=== PATIENT | male | born 1960 | race Caucasian/White ===

== ENCOUNTER 2016-07-04 10:36 | Inpatient (IN) | payer MEDICARE, OTHER ==
[2016-07-04 11:29] LABS: Basophils # (A) 0.1 k/uL (0-0.2); Basophils % (A) 1 %; CH 31.8; CHCM 35.1; Eosinophils % (A) 0 %; HCT 45.3 % (39.0-53.0); HDW 2.29; HGB 15.5 gm/dL (13.0-17.5); Luc # (Auto) 0.18; Luc % (Auto) 2; Lymphocytes # (A) 0.9 k/uL (1.0-4.8); Lymphocytes % (A) 9 %; MCH 31.1 pg (25.0-35.0); MCHC 34.3 g/dL (31.0-37.0); MCV 90.7 fL (80.0-100.0); Mean Platelet Volume 6.9; Monocytes # (A) 0.5 k/uL (0-1.0); Monocytes % (A) 5 %; Neutrophils # (A) 8.4 k/uL (1.3-7.7); Neutrophils % (A) 84 %; RDW 12.7 % (11.5-15.5); WBC (Perox) 10.02
[2016-07-04 11:30] LABS: ALT 38 U/L (21-72); AST 31 U/L (17-59); Alkaline Phosphatase 89 U/L (38-126); Anion Gap 17 mmol/L; Blood Urea Nitrogen 14 mg/dL (9-20); Calcium 9.6 mg/dL (8.4-10.2); Carbon Dioxide 21 mmol/L (22-30); Chloride 99 mmol/L (98-107); Glucose 103 mg/dL (74-99); Non-African American GFR(MDRD) >60 (>60 ml/min/1.73 sqM); Potassium 4.1 mmol/L (3.5-5.1); Sodium 137 mmol/L (137-145); Total Bilirubin 0.6 mg/dL (0.2-1.3); Total Protein 7.9 g/dL (6.3-8.2)
--- NOTE | 2016-07-04 11:30 | XR ---
EXAMINATION TYPE: XR chest 2V DATE OF EXAM ORDERED: 07/04/2016 11:24 AM HISTORY: Pain. REFERENCE: None. FINDINGS: The lungs are clear. Pleural spaces are clear. Heart size is normal. IMPRESSION: NORMAL CHEST.
[2016-07-04 11:43] LABS: INR 1.1 (<1.1); Partial Thromboplastin Time 25.3 sec (22.0-30.0)
[2016-07-04] MEDS ORDERED: ACETAMINOPHEN TAB 500 MG TAB PO STA (11:58)
[2016-07-04] MEDS ORDERED: SODIUM CHLORIDE 0.9% 1,000 ML IV ONE (12:19)
[2016-07-04 12:23] LABS: ABG HCO3 15 mmol/L (21-25); ABG PCO2 17 mmHg (35-45); ABG PH 7.56 (7.35-7.45); ABG PO2 121 mmHg (83-108); ABG TCO2 16 mmol/L (19-24)
[2016-07-04] MEDS ORDERED: RX INFO: IV CONTRAST WAS GIVEN 1 EACH MISC MISCELLANE PRN (12:23)
[2016-07-04 12:24] LABS: ABG Base Excess -6.6 mmol/L
[2016-07-04] MEDS ORDERED: LORazepam 2 MG/ML SYRINGE IV STA (12:41)
--- NOTE | 2016-07-04 12:41 | ED ---
SOB HPI - General Chief Complaint: Shortness of Breath Stated Complaint: SOB Time Seen by Provider: 07/04/16 10:41 Source: patient Mode of arrival: EMS Limitations: physical limitation - History of Present Illness Initial Comments: Severe pain of the right arm, he does not want me to touch his right arm has a hard time breathing and it does hurt to take a deep breath shortness of breath been there since last night he denies any history of COPD denies any history of for CHF he said he had a cardiac event 20 years ago he denies any headaches no neck stiffness denies any abdominal pain no frequency urgency dysuria, degree of system is negative otherwise - Related Data Home Medications Medication Instructions Recorded Confirmed Amoxicillin 1,000 mg PO BID 07/04/16 07/04/16 Super Beta Prostate 2 cap PO DAILY 07/04/16 07/04/16 traMADol HCL [Ultram] 50 mg PO Q6HR PRN 07/04/16 07/04/16 Allergies Allergy/AdvReac Type Severity Reaction Status Date / Time aspirin Allergy Anaphylaxis Verified 07/04/16 11:34 bee pollen Allergy Anaphylaxis Verified 07/04/16 11:34 Penicillins Allergy Anaphylaxis Verified 07/04/16 11:34 Review of Systems ROS Statement: Those systems with pertinent positive or pertinent negative responses have been documented in the HPI. ROS Other: All systems not noted in ROS Statement are negative. Past Medical History Additional Past Medical History / Comment(s): COMPLEX REGIONAL PAIN SYNDROME- CRPS, RIGHT KNEE PROBLEMS History of Any Multi-Drug Resistant Organisms: None Reported Past Surgical History: Orthopedic Surgery Additional Past Surgical History / Comment(s): RIGHT KNEE, RIGHT HAND, RIGHT ARM-TENDON Past Psychological History: No Psychological Hx Reported Smoking Status: Current every day smoker Past Alcohol Use History: None Reported Past Drug Use History: None Reported General Exam Limitations: physical limitation Course Vital Signs 07/04/16 07/04/16 07/04/16 10:38 10:50 11:05 Temperature 100.8 F H Pulse Rate 122 H Pulse Rate [ 106 H Pulse Oximetery ] Respiratory 22 Rate Blood Pressure 146/76 Blood Pressure 143/69 [Left Arm] O2 Sat by Pulse 100 100 Oximetry 07/04/16 07/04/16 07/04/16 11:35 11:50 12:15 Temperature 101.2 F H Pulse Rate Pulse Rate [ 102 H 104 H 103 H Pulse Oximetery ] Respiratory 24 Rate Blood Pressure Blood Pressure 122/68 134/75 136/69 [Left Arm] O2 Sat by Pulse 100 100 99 Oximetry 07/04/16 07/04/16 07/04/16 12:38 12:45 13:17 Temperature 101.6 F H Pulse Rate 124 H 105 H Pulse Rate [ 97 Pulse Oximetery ] Respiratory 32 H 24 20 Rate Blood Pressure 144/86 107/65 Blood Pressure 135/89 [Left Arm] O2 Sat by Pulse 10 L 99 100 Oximetry EKG is sinus tachycardia ventricular rate is 170 NH interval is 142 QRS duration is 90 QT/QTC 320/446, DVT of this EKG does not show any ST elevation - Reevaluation(s) Reevaluation #2: 07/04/16 14:00 Considering all the diagnoses and recommend to the patient that we need to put him in the hospital he agreed with that at 1400 not get hold of also give on the right the admitting orders Medical Decision Making - Lab Data Result diagrams: 07/04/16 11:00 07/04/16 11:00 Lab Results 07/04/16 07/04/16 07/04/16 Range/Units 11:00 11:00 11:00 WBC 10.0 (3.8-10.6) k/uL RBC 5.00 (4.30-5.90) m/uL Hgb 15.5 (13.0-17.5) gm/dL Hct 45.3 (39.0-53.0) % MCV 90.7 (80.0-100.0) fL MCH 31.1 (25.0-35.0) pg MCHC 34.3 (31.0-37.0) g/dL RDW 12.7 (11.5-15.5) % Plt Count 230 (150-450) k/uL Neutrophils % 84 % Lymphocytes % 9 % Monocytes % 5 % Eosinophils % 0 % Basophils % 1 % Neutrophils # 8.4 H (1.3-7.7) k/uL Lymphocytes # 0.9 L (1.0-4.8) k/uL Monocytes # 0.5 (0-1.0) k/uL Eosinophils # 0.0 (0-0.7) k/uL Basophils # 0.1 (0-0.2) k/uL PT (9.0-12.0) sec INR (<1.1) APTT (22.0-30.0) sec D-Dimer (<0.60) mg/L FEU Sample Site ABG pH (7.35-7.45) ABG pCO2 (35-45) mmHg ABG pO2 (83-108) mmHg ABG HCO3 (21-25) mmol/L ABG Total CO2 (19-24) mmol/L ABG O2 Saturation (94-97) % ABG Base Excess mmol/L FiO2 % Sodium 137 (137-145) mmol/L Potassium 4.1 (3.5-5.1) mmol/L Chloride 99 (98-107) mmol/L Carbon Dioxide 21 L (22-30) mmol/L Anion Gap 17 mmol/L BUN 14 (9-20) mg/dL Creatinine 1.01 (0.66-1.25) mg/dL Est GFR (MDRD) Af Amer >60 (>60 ml/min/1.73 sqM) Est GFR (MDRD) Non-Af >60 (>60 ml/min/1.73 sqM) Glucose 103 H (74-99) mg/dL Plasma Lactic Acid Gordy 2.8 H* (0.7-2.0) mmol/L Calcium 9.6 (8.4-10.2) mg/dL Total Bilirubin 0.6 (0.2-1.3) mg/dL AST 31 (17-59) U/L ALT 38 (21-72) U/L Alkaline Phosphatase 89 (38-126) U/L Troponin I (0.000-0.034) ng/mL Total Protein 7.9 (6.3-8.2) g/dL Albumin 4.6 (3.5-5.0) g/dL Influenza Type B (PCR) (Not Detectd) 07/04/16 07/04/16 07/04/16 Range/Units 11:00 11:00 11:00 WBC (3.8-10.6) k/uL RBC (4.30-5.90) m/uL Hgb (13.0-17.5) gm/dL Hct (39.0-53.0) % MCV (80.0-100.0) fL MCH (25.0-35.0) pg MCHC (31.0-37.0) g/dL RDW (11.5-15.5) % Plt Count (150-450) k/uL Neutrophils % % Lymphocytes % % Monocytes % % Eosinophils % % Basophils % % Neutrophils # (1.3-7.7) k/uL Lymphocytes # (1.0-4.8) k/uL Monocytes # (0-1.0) k/uL Eosinophils # (0-0.7) k/uL Basophils # (0-0.2) k/uL PT 11.0 (9.0-12.0) sec INR 1.1 (<1.1) APTT 25.3 (22.0-30.0) sec D-Dimer 0.71 H (<0.60) mg/L FEU Sample Site ABG pH (7.35-7.45) ABG pCO2 (35-45) mmHg ABG pO2 (83-108) mmHg ABG HCO3 (21-25) mmol/L ABG Total CO2 (19-24) mmol/L ABG O2 Saturation (94-97) % ABG Base Excess mmol/L FiO2 % Sodium (137-145) mmol/L Potassium (3.5-5.1) mmol/L Chloride (98-107) mmol/L Carbon Dioxide (22-30) mmol/L Anion Gap mmol/L BUN (9-20) mg/dL Creatinine (0.66-1.25) mg/dL Est GFR (MDRD) Af Amer (>60 ml/min/1.73 sqM) Est GFR (MDRD) Non-Af (>60 ml/min/1.73 sqM) Glucose (74-99) mg/dL Plasma Lactic Acid Gordy (0.7-2.0) mmol/L Calcium (8.4-10.2) mg/dL Total Bilirubin (0.2-1.3) mg/dL AST (17-59) U/L ALT (21-72) U/L Alkaline Phosphatase (38-126) U/L Troponin I <0.012 (0.000-0.034) ng/mL Total Protein (6.3-8.2) g/dL Albumin (3.5-5.0) g/dL Influenza Type B (PCR) (Not Detectd) 03/27/17 03/27/17 Range/Units 12:04 13:15 WBC (3.8-10.6) k/uL RBC (4.30-5.90) m/uL Hgb (13.0-17.5) gm/dL Hct (39.0-53.0) % MCV (80.0-100.0) fL MCH (25.0-35.0) pg MCHC (31.0-37.0) g/dL RDW (11.5-15.5) % Plt Count (150-450) k/uL Neutrophils % % Lymphocytes % % Monocytes % % Eosinophils % % Basophils % % Neutrophils # (1.3-7.7) k/uL Lymphocytes # (1.0-4.8) k/uL Monocytes # (0-1.0) k/uL Eosinophils # (0-0.7) k/uL Basophils # (0-0.2) k/uL PT (9.0-12.0) sec INR (<1.1) APTT (22.0-30.0) sec D-Dimer (<0.60) mg/L FEU Sample Site left radial ABG pH 7.56 H (7.35-7.45) ABG pCO2 17 L* (35-45) mmHg ABG pO2 121 H (83-108) mmHg ABG HCO3 15 L (21-25) mmol/L ABG Total CO2 16 L (19-24) mmol/L ABG O2 Saturation 99.0 H (94-97) % ABG Base Excess -6.6 mmol/L FiO2 28 % Sodium (137-145) mmol/L Potassium (3.5-5.1) mmol/L Chloride (98-107) mmol/L Carbon Dioxide (22-30) mmol/L Anion Gap mmol/L BUN (9-20) mg/dL Creatinine (0.66-1.25) mg/dL Est GFR (MDRD) Af Amer (>60 ml/min/1.73 sqM) Est GFR (MDRD) Non-Af (>60 ml/min/1.73 sqM) Glucose (74-99) mg/dL Plasma Lactic Acid Gordy (0.7-2.0) mmol/L Calcium (8.4-10.2) mg/dL Total Bilirubin (0.2-1.3) mg/dL AST (17-59) U/L ALT (21-72) U/L Alkaline Phosphatase (38-126) U/L Troponin I (0.000-0.034) ng/mL Total Protein (6.3-8.2) g/dL Albumin (3.5-5.0) g/dL Influenza Type B (PCR) Detected H (Not Detectd) Critical Care Time Total Critical Care Time: 60 Critical Care Time: Patient was quite tachycardic and tachypnea on arrival, his ABG showed metabolic acidosis 10 years severe dyspnea that prompted us a CT angiogram chest to rule out PE which was negative then we did the echocardiogram to rule out any acute Or not on any fluid around the pericardium compromising the cardiac functions and central supply tech personally confirmed. Told me that there was not enough fluid to cause any problem considering his tachycardia and tachycardia and tachypnea patient was given some Ativan and now fluid bolus was done to help him with the metabolic acidosis and Levaquin for bronchitis CN now Tamiflu for flu B. Considering tachycardia and tachypnea metabolic acidosis with flu B being positive and patient being febrile she'll be admitted to Dr. John service Disposition Clinical Impression: Tachycardia, Dyspnea, Metabolic acidosis, Elevated d-dimer, Influenza, Bronchitis Disposition: ADMITTED IP TO THIS HOSP Condition: Good Referrals: Mitchell Adair MD [Primary Care Provider] - 1-2 days
[2016-07-04] MEDS ORDERED: IBUPROFEN 600 MG TAB PO STA (12:42)
[2016-07-04] MEDS ORDERED: KETAMINE 10 MG/ML 20 ML VIAL IV ONE (12:47)
--- NOTE | 2016-07-04 13:23 | CT ---
EXAMINATION TYPE: CT angio chest DATE OF EXAM: 07/04/2016 1:19 PM COMPARISON: NONE HISTORY: SOB. Rule out PE CT DLP: 371.30 mGycm CONTRAST: CT chest with contrast and 3D reconstruction with MIP imaging is performed with IV Contrast, patient injected with 100 ml mL of Omnipaque 350. Contrast-enhanced CT of the chest was performed through the course of the pulmonary arteries with moises g and mediastinal window settings submitted. 3D reconstruction with MIP imaging was also performed. PULMONARY ARTERIES: The pulmonary arteries and their major tributaries are patent. I do not see lonnie dence for sizable filling defect to suggest pulmonary embolic process. LUNGS: The lungs are clear and free of infiltrate. Mild dependent basilar atelectasis. There is bronc hial wall thickening which may reflect bronchitis. No pulmonary nodule or mass is detected. No pleur al effusion. MEDIASTINUM: Thoracic aorta is of normal caliber . The heart is not enlarged. No evidence for media stinal mass. No mediastinal lymph nodes greater than 1cm. HILAR STRUCTURES: No evidence for mass. No hilar lymph nodes greater than 1 cm. UPPER ABDOMEN: No significant abnormality is seen. IMPRESSION: 1. No evidence for Pulmonary embolism at this time. 2. Bronchial wall thickening especially within the lower lobes which may reflect bronchitis and early changes of bronchiectasis.
[2016-07-04] MEDS ORDERED: LEVOFLOXACIN 500MG-D5W PMX 500 MG in DEXTROSE/WATER 1 100ML.BAG IVPB STA (13:31)
[2016-07-04] MEDS ORDERED: OSELTAMIVIR 75 MG CAP PO STA (13:55)
[2016-07-04] MEDS ORDERED: ONDANSETRON 4 MG/2 ML VIAL IVP PRN (14:01)
[2016-07-04] MEDS ORDERED: IBUPROFEN 400 MG TAB PO PRN (14:01)
[2016-07-04] MEDS ORDERED: NALOXONE 0.4 MG/ML 1 ML VIAL IV PRN (14:01)
[2016-07-04] MEDS ORDERED: traMADol 50 MG TAB PO PRN (14:06)
[2016-07-04] MEDS ORDERED: LEVOFLOXACIN 500 MG TAB PO SCH (14:15)
[2016-07-04 15:01] LABS: Appearance,Urine Clear (Clear); Bilirubin,Urine Negative (Negative); Glucose,Urine (UA) Negative (Negative); Ketones,Urine Negative (Negative); Leukocyte Esterase,Urine Negative (Negative); Nitrite,Urine Negative (Negative); Particle Count 592; Protein,Urine Negative (Negative); RBC,Urine 2 /hpf (0-5); UA Billing (MACRO vs. MICRO) MICRO; Urobilinogen,Urine <2.0 mg/dL (<2.0); WBC,Urine 1 /hpf (0-5)
[2016-07-04 15:41] LABS: Specific Gravity,Urine 1.049 (1.001-1.035)
[2016-07-04] MEDS: SODIUM CHLORIDE 0.9% 1,000 ML IV SCH (16:49)
[2016-07-04] MEDS: LORazepam 2 MG/ML SYRINGE IV PRN (20:27)
[2016-07-04] MEDS: OSELTAMIVIR 75 MG CAP PO SCH (20:29)
[2016-07-05] MEDS: LORazepam 2 MG/ML SYRINGE IV PRN ×2 (05:45→11:53)
[2016-07-05] MEDS: SODIUM CHLORIDE 0.9% 1,000 ML IV SCH ×2 (05:57→15:56)
[2016-07-05] MEDS: OSELTAMIVIR 75 MG CAP PO SCH ×2 (08:38→22:19)
[2016-07-05] MEDS ORDERED: SUPER BETA PROSTATE PO SCH (09:00)
[2016-07-05 10:12] VITALS: BMI 28.5
--- NOTE | 2016-07-05 12:10 | P.HPIM ---
History of Present Illness H&P Date: 07/05/16 Chief Complaint: Shortness of breath This is a 56-year-old gentleman with past medical history significant for chronic arthritis pain who presented to the emergency room with worsening shortness of breath and cough. Patient said that his symptoms start couple of days ago that his dyspnea is being getting worse that he was barely able to walk around without feeling short of breath. He was also coughing and said that his cough was mostly nonproductive but occasionally productive of yellowish sputum. He was having fevers and chills at home. He presented to the emergency room and was found to be hyperventilating and tachypneic. CT angiogram showed no evidence of PE or lungs infiltrate. Patient had multiple high-grade fevers and was found to be positive for influenza PE. He was admitted to the hospital and started on Tamiflu. He is feeling relatively better today. He is complaining of severe anxiety as he is on droplet precaution and is not allowed to walk up and down the [place] which makes her very anxious. Review of Systems Review of system: 14 points review of systems were obtained and were negative except to what were mentioned in the HPI. Past Medical History Past Medical History: Myocardial Infarction ([place]) Additional Past Medical History / Comment(s): COMPLEX REGIONAL PAIN SYNDROME- CRPS, RIGHT KNEE PROBLEMS, "i had a heart attackk 20 years ago" Last Myocardial Infarction Date:: unk History of Any Multi-Drug Resistant Organisms: None Reported Past Surgical History: Orthopedic Surgery Additional Past Surgical History / Comment(s): total 23 RIGHT KNEE sx ( brigements, meniscus repairs), RIGHT HAND, RIGHT ARM-TENDON repair, sinus surgury. Past Anesthesia/Blood Transfusion Reactions: No Reported Reaction Past Psychological History: No Psychological Hx Reported Smoking Status: Current every day smoker Past Alcohol Use History: None Reported Additional Past Alcohol Use History / Comment(s): started smoking at age 12, smokes 1/2 ppd. Past Drug Use History: None Reported - Past Family History Mother Family Medical History: Hypertension Father Family Medical History: Cancer Additional Family Medical History / Comment(s): colon cancer Medications and Allergies Home Medications Medication Instructions Recorded Confirmed Type Amoxicillin 1,000 mg PO BID 07/04/16 07/04/16 History Super Beta Prostate 2 cap PO DAILY 07/04/16 07/04/16 History traMADol HCL [Ultram] 50 mg PO Q6HR PRN 07/04/16 07/04/16 History Allergies Allergy/AdvReac Type Severity Reaction Status Date / Time aspirin Allergy Anaphylaxis Verified 07/04/16 11:34 bee pollen Allergy Anaphylaxis Verified 07/04/16 11:34 Penicillins Allergy Anaphylaxis Verified 07/04/16 11:34 Physical Exam Vitals: Vital Signs Temp Pulse Pulse Resp BP BP Pulse Ox 07/05/16 08:00 97.5 F L 97 20 118/64 96 07/05/16 04:00 100.5 F H 113 H 18 145/69 93 L 07/05/16 00:00 100.1 F H 109 H 18 124/57 96 07/04/16 20:00 98.4 F 100 18 134/73 100 07/04/16 17:30 97.3 F L 84 18 110/65 100 07/04/16 16:49 98.3 F 84 18 103/68 99 07/04/16 14:44 100 18 115/69 100 07/04/16 14:10 98 18 104/65 96 Intake and Output 07/04/16 07/05/16 07/05/16 22:59 06:59 14:59 Intake Total 236 540 50 Balance 236 540 50 Intake: Oral 236 540 50 Other: # Voids 1 Weight 98.3 kg 98.3 kg Patient Weight 07/06/16 06:59 Weight 98.3 kg General: The patient is awake and alert, in no distress, and does not appear acutely ill. Eye: extra-ocular movements are intact; there is normal conjunctiva bilaterally. . Neck: The neck is supple, there is no tenderness or JVD. Cardiovascular: Normal S1-S2, no S3-S4, no murmurs. Respiratory: Lungs clear to auscultation bilaterally with no wheezes rhonchi or rales. Gastrointestinal: Abdomen is soft, nontender, nondistended, with no organomegaly. . Musculoskeletal: Normal ROM, no tenderness, There is no pedal edema. Neurological: There are no obvious motor or sensory deficits. Speech is normal. Skin: Skin is warm and dry and no rashes or lesions are noted. Results CBC & Chem 7: 07/04/16 11:00 07/04/16 11:00 Labs: Abnormal Lab Results - Last 24 Hours (Table) 07/04/16 Range/Units 14:40 Ur Specific [place] 1.049 H (1.001-1.035) Urine Blood Trace H (Negative) Microbiology - Last 24 Hours (Table) 07/04/16 14:40 Urine Culture - Preliminary Urine,Voided Thrombosis Risk Factor Assmnt - Choose All That Apply Any of the Below Risk Factors Present?: Yes Each Factor Represents 1 point: Age 41-60 years, Obesity (BMI >25) Other Risk Factors: No Other congenital or acquired thrombophilia - If yes, enter type in comment: No Thrombosis Risk Factor Assessment Total Risk Factor Score: 2 Thrombosis Risk Factor Assessment Level: Low Risk Assessment and Plan Plan: 1. Acute influenza B upper respiratory tract infection 2. Suspected superimposed acute bacterial bronchitis 3. Acute respiratory alkalosis secondary to tachypnea on presentation 4. Generalized anxiety disorder 5. Sepsis on presentation secondary to #1 and 2 Today, I reviewed his medication list and lab work results. Lactate is back to normal with IV fluid hydration. Continue Tamiflu and Levaquin for 5 days course. Change IV fluid to normal saline 75 mL per hour for the next 24 hours. Patient appeared very restless and anxious about being in the room and told me that he is claustrophobic for which I would start him on Valium low dose 4 times a day. He is anxious to go home but I told him is still too early. I explained to him that he would be able to go home within 24 hours past without having a fever. Awaiting blood cultures to finalize. Pulmonology consulted, appreciate recommendations.
--- NOTE | 2016-07-05 12:26 | ECHOF ---
Referral Reason:Rule out pericardial effusion MEASUREMENTS -------- HEIGHT: 185.4 cm WEIGHT: 93.0 kg BP: 135/89 RVIDd: 2.7 cm (< 3.3) IVSd: 1.1 cm (0.6 - 1.1) LVIDd: 4.3 cm (3.9 - 5.3) LVPWd: 1.0 cm (0.6 - 1.1) IVSs: 1.4 cm LVIDs: 2.9 cm LVPWs: 1.6 cm LA Diam: 3.7 cm (2.7 - 3.8) LAESV Index (A-L): 18.64 ml/m Ao Diam: 3.0 cm (2.0 - 3.7) AV Cusp: 2.1 cm (1.5 - 2.6) MV EXCURSION: 14.642 mm (> 18.000) MV EF SLOPE: 89 mm/s (70 - 150) EPSS: 0.4 cm MV E Elian: 0.82 m/s MV DecT: 169 ms MV A Elian: 1.17 m/s MV E/A Ratio: 0.70 RAP: 5.00 mmHg RVSP: 28.98 mmHg FINDINGS -------- Sinus rhythm. This was a technically good study. The left ventricular size is normal. There is borderline concentric left ventricular hypertrophy. Overall left ventricular systolic function is normal with, an EF between 60 - 65 %. The right ventricle is normal in size. Normal LA size by volume 22+/-6 ml/m2. The right atrium is normal in size. The aortic valve is trileaflet and appears structurally normal. Normal appearing mitral valve. No mitral regurgitation. The tricuspid valve appears structurally normal. No regurgitation noted The pulmonic valve was not well visualized. There is no pulmonic regurgitation present. The aortic root size is normal. Normal inferior vena cava with normal inspiratory collapse consistent with estimated right atrial pressure of 5 mmHg. CONCLUSIONS -------- 1. Sinus rhythm. 2. There is no pulmonic regurgitation present. 3. The aortic root size is normal. 4. Normal inferior vena cava with normal inspiratory collapse consistent with estimated right atrial pressure of 5 mmHg. 5. This was a technically good study. 6. There is borderline concentric left ventricular hypertrophy. 7. Overall left ventricular systolic function is normal with, an EF between 60 - 65 %. 8. Normal LA size by volume 22+/-6 ml/m2. 9. The aortic valve is trileaflet and appears structurally normal. 10. Normal appearing mitral valve. 11. The tricuspid valve appears structurally normal. 12. The pulmonic valve was not well visualized. IT APPLICATIONS ANALYST: Angelina Simpson RDCS
--- NOTE | 2016-07-05 14:05 | P.CNPUL ---
History of Present Illness Consult date: 07/05/16 Reason for consult: dyspnea Chief complaint: shortness of breath History of present illness: This is a 56-year-old male comes into the hospital with complaints of difficulty breathing. He apparently is having a hard time taking a deep breath. Anyway the patient tested positive for influenza and was admitted. The patient states that he is feeling a bit better. He was very sleepy wanted to the imu into his room and he was difficult to arouse initially. Not a particularly good historian. I asked him why he was admitted. He was not sure. I'm not sure either. The patient had a blood gas which showed appear respiratory alkalosis. His his influenza studies were normal. He had a CT angiogram the chest which was negative for PE. He also had a chest x-ray which was normal. His home medications only included amoxicillin super beta prostate and tramadol. Review of Systems A 12 point review of system is positive for shortness of breath and pleuritic- type chest pleuritic type chest pain. Past Medical History Past Medical History: Myocardial Infarction ([place]) Additional Past Medical History / Comment(s): COMPLEX REGIONAL PAIN SYNDROME- CRPS, RIGHT KNEE PROBLEMS, "i had a heart attackk 20 years ago" Last Myocardial Infarction Date:: unk History of Any Multi-Drug Resistant Organisms: None Reported Past Surgical History: Orthopedic Surgery Additional Past Surgical History / Comment(s): total 23 RIGHT KNEE sx ( brigements, meniscus repairs), RIGHT HAND, RIGHT ARM-TENDON repair, sinus surgury. Past Anesthesia/Blood Transfusion Reactions: No Reported Reaction Past Psychological History: No Psychological Hx Reported Smoking Status: Current every day smoker Past Alcohol Use History: None Reported Additional Past Alcohol Use History / Comment(s): started smoking at age 12, smokes 1/2 ppd. Past Drug Use History: None Reported - Past Family History Mother Family Medical History: Hypertension Father Family Medical History: Cancer Additional Family Medical History / Comment(s): colon cancer Medications and Allergies Home Medications Medication Instructions Recorded Confirmed Type Amoxicillin 1,000 mg PO BID 07/04/16 07/04/16 History Super Beta Prostate 2 cap PO DAILY 07/04/16 07/04/16 History traMADol HCL [Ultram] 50 mg PO Q6HR PRN 07/04/16 07/04/16 History Allergies Allergy/AdvReac Type Severity Reaction Status Date / Time aspirin Allergy Anaphylaxis Verified 07/04/16 11:34 bee pollen Allergy Anaphylaxis Verified 07/04/16 11:34 Penicillins Allergy Anaphylaxis Verified 07/04/16 11:34 Physical Exam Osteopathic Statement: *. No significant issues noted on an osteopathic structural exam other than those noted in the History and Physical/Consult. Vitals: Vital Signs Temp Pulse Pulse Resp BP BP Pulse Ox 07/05/16 12:00 98.4 F 92 20 132/71 98 07/05/16 08:00 97.5 F L 97 20 118/64 96 07/05/16 04:00 100.5 F H 113 H 18 145/69 93 L 07/05/16 00:00 100.1 F H 109 H 18 124/57 96 07/04/16 20:00 98.4 F 100 18 134/73 100 07/04/16 17:30 97.3 F L 84 18 110/65 100 07/04/16 16:49 98.3 F 84 18 103/68 99 07/04/16 14:44 100 18 115/69 100 07/04/16 14:10 98 18 104/65 96 Intake and Output 07/04/16 07/05/16 07/05/16 22:59 06:59 14:59 Intake Total 236 540 150 Balance 236 540 150 Intake: Oral 236 540 150 Other: # Voids 1 1 Weight 98.3 kg 98.3 kg Patient Weight 07/06/16 06:59 Weight 98.3 kg no acute distress, oriented 3. HEENT examination is unremarkable. Mucous membranes are moist. No oral lesions. Neck supple. Full range of motion. No adenopathy. No thyromegaly. Neck veins are flat. Cardiovascular examination reveals regular rhythm rate. S1-S2 normal. No S3- S4 murmur. Lungs are clear breath sounds are equal. No wheezes rhonchi or crackles. Abdomen soft. Extremities are intact Results - Laboratory Findings CBC and BMP: 07/04/16 11:00 07/04/16 11:00 ABG ABG pH 7.56 (7.35-7.45) H 07/04/16 12:04 ABG pCO2 17 mmHg (35-45) L* 07/04/16 12:04 ABG pO2 121 mmHg (83-108) H 07/04/16 12:04 ABG O2 Saturation 99.0 % (94-97) H 07/04/16 12:04 PT/INR, D-dimer PT 11.0 sec (9.0-12.0) 07/04/16 11:00 INR 1.1 (<1.1) 07/04/16 11:00 D-Dimer 0.71 mg/L FEU (<0.60) H 07/04/16 11:00 Abnormal lab findings: Abnormal Labs 07/04/16 14:40 Ur Specific [place] 1.049 H Urine Blood Trace H - Diagnostic Findings Chest x-ray: image reviewed CT scan - chest: image reviewed (chest x-ray labs and medications are reviewed.) Assessment and Plan (1) Influenza Status: Acute Plan: Plan this patient should be discharged home on Tamiflu. In my opinion, there is absolutely no reason for this patient to be in the hospital and had being in the hospital with influenza poses arrested healthcare workers and other patients. His absolute no reason that this patient needs to be in the hospital any further. Time with Patient: Greater than 30
--- NOTE | 2016-07-05 15:07 | CDI ---
In responding to this query, please exercise your independent professional judgment. The [facility] Coding Staff and Clinical Documentation Specialists appreciate your assistance in clarifying documentation, maintaining compliance with coding guidelines, accurately documenting patients condition and capturing severity of illness. The fact that a question is asked does not imply that any particular answer is desired or expected. Communication forms are a method of clarifying documentation and are not made part of the Legal Health Record. Thank you in advance for your clarification. Last Revision, June 2015 Fanta Sandoval [address] [place] [address] Documentation Clarification Form Date: 07/05/2016 2:55:00 PM From: Yasmin Graff Admit Date: 07/04/2016 2:01:00 PM Patient Name: Alvaro Lozano Visit Number: [id number] Dr. Mitchell Adair History/Risk Factors: COPD Influenza B Bronchitis Smoker Clinical Indicators: Vital signs/Pulse oximetry: RR 24, sats 99% > RR 32, sats ? Lung/Breathing assessment: short of breath, labored ABG/CBG: pH - 7.56 p CO2 - 17 pHCO3 - 15 'Acute respiratory alkalosis' documented in H&P Treatment: O2: non-rebreather, nasal cannula IV Levaquin IV Ativan IV fluids with bolus In your professional opinion, can you please clarify if these findings signify one of the following conditions? Acuity: o Acute o Chronic o Acute on Chronic Respiratory Status: o Respiratory failure with hypercapnia o Respiratory failure with hypoxia o Other Diagnosis, please specify o Unable to determine Please document in your progress notes and discharge summary in order to capture severity of illness and risk of mortality. Include clinical findings that support your diagnosis. FYI: Press F11 to launch patient chart. The diagnoses above does not apply for this patient Place X here if this finding has no clinical significance, is not applicable or if you are not able to provide any additional documentation. ANNY
[2016-07-05] MEDS: traMADol 50 MG TAB PO SCH ×2 (15:52→22:16)
[2016-07-05] MEDS: LEVOFLOXACIN 500 MG TAB PO SCH (15:52)
[2016-07-05] MEDS: DIAZEPAM 2 MG TAB PO SCH ×3 (15:54→22:17)
[2016-07-05] MEDS: ACETAMINOPHEN TAB 325 MG TAB PO PRN ×2 (18:31→23:51)
[2016-07-05] MEDS: HEPARIN SODIUM,PORCINE 5,000 UNIT/ML 1 ML VIAL SQ SCH (22:18)
[2016-07-06 06:27] LABS: Basophils % (A) 1 %; CH 31.7; CHCM 34.5; Eosinophils % (A) 0 %; HDW 2.39; HGB 15.2 gm/dL (13.0-17.5); Luc # (Auto) 0.19; Luc % (Auto) 3; Lymphocytes # (A) 1.2 k/uL (1.0-4.8); Lymphocytes % (A) 19 %; MCHC 33.6 g/dL (31.0-37.0); MCV 92.2 fL (80.0-100.0); Mean Platelet Volume 6.9; Monocytes # (A) 0.4 k/uL (0-1.0); Monocytes % (A) 7 %; Neutrophils # (A) 4.5 k/uL (1.3-7.7); Neutrophils % (A) 71 %; RBC 4.89 m/uL (4.30-5.90); RDW 12.7 % (11.5-15.5); WBC 6.3 k/uL (3.8-10.6); WBC (Perox) 6.38
[2016-07-06] MEDS: ACETAMINOPHEN TAB 325 MG TAB PO PRN (06:27)
[2016-07-06 07:56] LABS: Anion Gap 12 mmol/L; Blood Urea Nitrogen 13 mg/dL (9-20); Calcium 8.9 mg/dL (8.4-10.2); Carbon Dioxide 24 mmol/L (22-30); Chloride 104 mmol/L (98-107); Glucose 96 mg/dL (74-99); Non-African American GFR(MDRD) >60 (>60 ml/min/1.73 sqM); Potassium 4.5 mmol/L (3.5-5.1); Sodium 140 mmol/L (137-145)
[2016-07-06] MEDS: OSELTAMIVIR 75 MG CAP PO SCH ×2 (08:11→21:11)
[2016-07-06] MEDS: DIAZEPAM 2 MG TAB PO SCH ×2 (08:11→12:02)
[2016-07-06] MEDS: HEPARIN SODIUM,PORCINE 5,000 UNIT/ML 1 ML VIAL SQ SCH ×2 (08:13→21:11)
[2016-07-06] MEDS: traMADol 50 MG TAB PO SCH ×3 (08:13→21:12)
[2016-07-06] MEDS: LEVOFLOXACIN 500 MG TAB PO SCH (12:01)
--- NOTE | 2016-07-06 15:47 | P.PN ---
Subjective Principal diagnosis: Sepsis Patient is a 56-year-old male presenting with cough and shortness of breath Patient had evidence of influenza and acute bronchitis Currently he is being treated with Tamiflu and Levaquin he is improving gradually He had evidence of sepsis on presentation was elevated lactic acid he received IV fluid boluses and has improved Objective - Vital Signs Vital signs: Vital Signs Temp 98.6 F 07/06/16 08:00 Pulse 73 07/06/16 12:00 Resp 18 07/06/16 12:00 BP 110/63 07/06/16 12:00 Pulse Ox 98 07/06/16 04:00 Intake & Output 07/05/16 07/06/16 07/06/16 18:59 06:59 18:59 Intake Total 1650 180 Balance 1650 180 Weight 98.3 kg 95.2 kg 95.2 kg Intake: IV 1500 Sodium Chloride 0.9% 1, 1500 000 ml @ 125 mls/hr IV . Q8H JOHN Rx#:[id number] Oral 150 180 Other: # Voids 1 2 - Exam HEENT head normocephalic and atraumatic Neck is supple no JVD no goiter no lymphadenopathy Chest exam reveals a crackles in both lung pritchard no wheezing Cardiac exam reveals regular heart sounds no murmurs Abdomen is soft nontender no organomegaly Extremity exam reveals no edema no cyanosis or clubbing - Labs CBC & Chem 7: 07/06/16 05:41 07/06/16 05:41 Labs: Microbiology - Last 24 Hours (Table) 07/04/16 14:40 Urine Culture - Final Urine,Voided Assessment and Plan Plan: #1 Acute purulent bronchitis #2 positive for influenza on presentation #3 sepsis on presentation At this time continue was current management Possible discharge to home in the next 24 hours
[2016-07-06] MEDS: LORazepam 1 MG TAB PO SCH (21:11)
[2016-07-06] MEDS: LORATADINE-PSEUDOEPH 5-120 MG 1 EACH TAB.ER.12H PO SCH (21:11)
[2016-07-07 00:20] VITALS: RESP 16
[2016-07-07] MEDS: OSELTAMIVIR 75 MG CAP PO SCH (08:13)
[2016-07-07] MEDS: LORazepam 1 MG TAB PO SCH (08:13)
[2016-07-07] MEDS: traMADol 50 MG TAB PO SCH ×2 (08:13→15:23)
[2016-07-07] MEDS: LORATADINE-PSEUDOEPH 5-120 MG 1 EACH TAB.ER.12H PO SCH (08:14)
[2016-07-07] MEDS: HEPARIN SODIUM,PORCINE 5,000 UNIT/ML 1 ML VIAL SQ SCH (08:14)
[2016-07-07 09:12] LABS: Basophils % (A) 0 %; CH 31.6; CHCM 34.4; Eosinophils % (A) 1 %; HCT 42.4 % (39.0-53.0); HDW 2.46; HGB 14.2 gm/dL (13.0-17.5); Luc # (Auto) 0.15; Luc % (Auto) 3; Lymphocytes # (A) 1.1 k/uL (1.0-4.8); Lymphocytes % (A) 22 %; MCHC 33.6 g/dL (31.0-37.0); MCV 92.2 fL (80.0-100.0); Mean Platelet Volume 6.7; Monocytes # (A) 0.3 k/uL (0-1.0); Monocytes % (A) 6 %; Neutrophils # (A) 3.5 k/uL (1.3-7.7); Neutrophils % (A) 69 %; RDW 12.7 % (11.5-15.5); WBC 5.1 k/uL (3.8-10.6); WBC (Perox) 5.28
[2016-07-07 09:26] LABS: ALT 35 U/L (21-72); AST 31 U/L (17-59); Alkaline Phosphatase 62 U/L (38-126); Anion Gap 12 mmol/L; Blood Urea Nitrogen 14 mg/dL (9-20); Calcium 9.1 mg/dL (8.4-10.2); Carbon Dioxide 26 mmol/L (22-30); Chloride 99 mmol/L (98-107); Glucose 149 mg/dL (74-99); Non-African American GFR(MDRD) >60 (>60 ml/min/1.73 sqM); Potassium 3.9 mmol/L (3.5-5.1); Sodium 137 mmol/L (137-145); Total Bilirubin 0.7 mg/dL (0.2-1.3)
[2016-07-07] MEDS: LEVOFLOXACIN 500 MG TAB PO SCH (11:14)
--- NOTE | 2016-07-07 15:51 | P.DS ---
Providers Date of admission: 07/04/16 14:01 Expected date of discharge: 07/07/16 Attending physician: Jessy Juarez Consults: 07/04/16 15:25 Consult Physician Stat Consulting Provider: Hussein Arceo Reason/Comments: Shortness of breath Do you want consulting provider notified?: Yes Primary care physician: [facility] Course: Discharge diagnosis 1. Acute influenza B upper respiratory tract infection 2. Suspected superimposed acute bacterial bronchitis 3. Acute respiratory alkalosis secondary to tachypnea on presentation 4. Generalized anxiety disorder 5. Sepsis on presentation secondary to #1 and 2 Hospital course This is a 56-year-old gentleman with past medical history significant for chronic arthritis pain who presented to the emergency room with worsening shortness of breath and cough. Patient said that his symptoms start couple of days ago that his dyspnea is being getting worse that he was barely able to walk around without feeling short of breath. He was also coughing and said that his cough was mostly nonproductive but occasionally productive of yellowish sputum. He was having fevers and chills at home. He presented to the emergency room and was found to be hyperventilating and tachypneic. CT angiogram showed no evidence of PE or lungs infiltrate. Patient had multiple high-grade fevers and was found to be positive for influenza . He was admitted to the hospital and started on Tamiflu. Patient was also seen by pulmonary service. Patient's symptoms have improved greatly. He is afebrile. He has 4 more doses of Tamiflu to complete. Also continue Levaquin for 5 more days for his bronchitis. Patient's is able to ambulate on room air satting at 96%. Patient is medically stable for discharge. Please refer to chart for any further details. Patient Condition at Discharge: Stable Plan - Discharge Summary New Discharge Prescriptions: Levofloxacin [Levaquin] 500 mg PO Q24H #5 tab Loratadine-Pseudoeph 5-120 mg [Claritin-D 12 Hour] 1 each PO Q12HR #10 tab.er.12h Oseltamivir [Tamiflu] 75 mg PO Q12HR #8 cap Discharge Medication List Super Beta Prostate 2 cap PO DAILY 07/04/16 [History] traMADol HCL [Ultram] 50 mg PO Q6HR PRN 07/04/16 [History] Levofloxacin [Levaquin] 500 mg PO Q24H #5 tab 07/05/16 [Rx] Oseltamivir [Tamiflu] 75 mg PO Q12HR #8 cap 07/05/16 [Rx] Loratadine-Pseudoeph 5-120 mg [Claritin-D 12 Hour] 1 each PO Q12HR #10 tab.er.12h 07/07/16 [Rx] Follow up Appointment(s)/Referral(s): Mitchell Adair MD [Primary Care Provider] - 07/18/16 3:30 pm Patient Instructions/Handouts: Influenza (DC) Activity/Diet/Wound Care/Special Instructions: Regular diet No smoking, cessation information provided. Discharge Disposition: HOME SELF-CARE
[2016-07-07 16:11] VITALS: BP 112/66; PULSE 87; TEMP 98.2
== END 2016-07-07 16:30 | disposition home or self-care (01) | DRG 872 ==
LOC: EC 10:36 → 6SEL 14:01 → 4MS4W 07-06 15:48
PROVIDERS: ADMIT Internal Medicine; ATTEND Internal Medicine
DX: A41.9 Sepsis, unspecified organism (principal); E87.4 Mixed disorder of acid-base balance; G90.50 Complex regional pain syndrome I, unspecified; J10.1 Influenza due to other identified influenza virus with other respiratory manifestations; J20.8 Acute bronchitis due to other specified organisms; R06.4 Hyperventilation; R06.82 Tachypnea, not elsewhere classified; G89.4 Chronic pain syndrome; M19.90 Unspecified osteoarthritis, unspecified site; R00.0 Tachycardia, unspecified; F40.240 Claustrophobia; R50.9 Fever, unspecified; F41.1 Generalized anxiety disorder; I25.2 Old myocardial infarction; R45.1 Restlessness and agitation; F17.200 Nicotine dependence, unspecified, uncomplicated; Z71.3 Dietary counseling and surveillance; Z82.49 Family history of ischemic heart disease and other diseases of the circulatory system; Z80.0 Family history of malignant neoplasm of digestive organs; Z71.6 Tobacco abuse counseling; Z88.0 Allergy status to penicillin; Z88.6 Allergy status to analgesic agent; Z91.030 Bee allergy status; Z79.891 Long term (current) use of opiate analgesic; Z79.899 Other long term (current) drug therapy
CPT/HCPCS: 36415; 36600; 71020; 71275; 80048; 80053; 81001; 82805; 83605; 84484; 85025; 85379; 85610; 85730; 87040; 87086; 87502; 93005; 93306; 96361; 96365; 96375; 99291

== ENCOUNTER 2016-07-10 20:39 | Observation (INO) | payer MEDICARE, OTHER ==
[2016-07-10] MEDS ORDERED: ONDANSETRON 4 MG/2 ML VIAL IVP STA (22:12)
[2016-07-10] MEDS ORDERED: DICYCLOMINE 10 MG/ML 2 ML AMP IM STA (22:12)
[2016-07-10] MEDS ORDERED: SODIUM CHLORIDE 0.9% 1,000 ML IV STA (22:12)
[2016-07-10] MEDS ORDERED: RX INFO: IV CONTRAST WAS GIVEN 1 EACH MISC MISCELLANE PRN (22:12)
[2016-07-10] MEDS ORDERED: FAMOTIDINE 20 MG/2 ML VIAL IV STA (22:13)
--- NOTE | 2016-07-10 22:15 | ED ---
General Adult HPI - General Chief complaint: Nausea/Vomiting/Diarrhea Stated complaint: FLUS SYMPTOMS NOT GETTING ANY BETTER Time Seen by Provider: 07/10/16 21:59 Source: patient, RN notes reviewed Mode of arrival: ambulatory Limitations: no limitations - History of Present Illness Initial comments: Patient is a pleasant 56-year-old male presenting to the emergency Department with nausea and vomiting. Symptoms started 6 days ago and have progressively worsened. Patient was admitted to the hospital and discharged a few days ago for influenza. Patient still has mild rhinorrhea and minimal cough. Patient states vomiting is getting worse. Patient does have some upper abdominal discomfort. No fevers however he did have them several days ago. Patient is currently on Tamiflu and Levaquin. No diarrhea. No dysuria. - Related Data Home Medications Medication Instructions Recorded Confirmed Super Beta Prostate 2 cap PO DAILY 07/04/16 07/04/16 traMADol HCL [Ultram] 50 mg PO Q6HR PRN 07/04/16 07/04/16 Previous Rx's Medication Instructions Recorded Levofloxacin [Levaquin] 500 mg PO Q24H #5 tab 07/05/16 Oseltamivir [Tamiflu] 75 mg PO Q12HR #8 cap 07/05/16 Loratadine-Pseudoeph 5-120 mg 1 each PO Q12HR #10 tab.er.12h 07/07/16 [Claritin-D 12 Hour] Allergies Allergy/AdvReac Type Severity Reaction Status Date / Time aspirin Allergy Anaphylaxis Verified 07/10/16 21:00 bee pollen Allergy Anaphylaxis Verified 07/10/16 21:00 Penicillins Allergy Anaphylaxis Verified 07/10/16 21:00 Review of Systems ROS Statement: Those systems with pertinent positive or pertinent negative responses have been documented in the HPI. ROS Other: All systems not noted in ROS Statement are negative. Constitutional: Denies: fever Eyes: Denies: eye pain ENT: Reports: congestion. Denies: ear pain Respiratory: Reports: cough. Denies: dyspnea Cardiovascular: Denies: chest pain Endocrine: Denies: fatigue Gastrointestinal: Reports: abdominal pain, nausea, vomiting. Denies: diarrhea Genitourinary: Denies: dysuria Musculoskeletal: Denies: back pain Skin: Denies: rash Neurological: Denies: headache Past Medical History Past Medical History: Myocardial Infarction (ME) Additional Past Medical History / Comment(s): COMPLEX REGIONAL PAIN SYNDROME- CRPS, RIGHT KNEE PROBLEMS, "i had a heart attackk 20 years ago" Last Myocardial Infarction Date:: unk History of Any Multi-Drug Resistant Organisms: None Reported Past Surgical History: Orthopedic Surgery Additional Past Surgical History / Comment(s): total 23 RIGHT KNEE sx ( brigements, meniscus repairs), RIGHT HAND, RIGHT ARM-TENDON repair, sinus surgury. Past Anesthesia/Blood Transfusion Reactions: No Reported Reaction Past Psychological History: No Psychological Hx Reported Smoking Status: Current every day smoker Past Alcohol Use History: None Reported Additional Past Alcohol Use History / Comment(s): started smoking at age 12, smokes 1/2 ppd. Past Drug Use History: None Reported - Past Family History Mother Family Medical History: Hypertension Father Family Medical History: Cancer Additional Family Medical History / Comment(s): colon cancer General Exam Limitations: no limitations General appearance: alert, in no apparent distress Head exam: Present: atraumatic Eye exam: Present: normal appearance, PERRL ENT exam: Present: normal oropharynx Neck exam: Present: normal inspection Respiratory exam: Present: normal lung sounds bilaterally Cardiovascular Exam: Present: regular rate, normal rhythm GI/Abdominal exam: Present: soft, tenderness (Moderate epigastric tenderness, mild left-sided and suprapubic tenderness), normal bowel sounds. Absent: distended, guarding, rebound, rigid, pulsatile mass Extremities exam: Present: normal inspection, other (Patient states chronic pain right arm). Absent: pedal edema, calf tenderness Neurological exam: Present: alert Psychiatric exam: Present: normal affect, normal mood Skin exam: Absent: rash Course Vital Signs 07/10/16 21:00 Temperature 98.8 F Pulse Rate 85 Respiratory 17 Rate Blood Pressure 142/80 O2 Sat by Pulse 99 Oximetry Medical Decision Making - Medical Decision Making Patient reevaluated and was able to tolerate only limited fluids. Patient states he is still very nauseated and not comfortable. Patient does not feel comfortable with discharge at this time. Case discussed in detail with Dr. Juarez, who will admit for Dr. Islas. - Lab Data Result diagrams: 07/10/16 22:02 07/10/16 22:02 Lab Results 07/10/16 07/10/16 07/10/16 Range/Units 22:02 22:02 22:02 WBC 7.2 (3.8-10.6) k/uL RBC 5.06 (4.30-5.90) m/uL Hgb 16.0 (13.0-17.5) gm/dL Hct 46.1 (39.0-53.0) % MCV 91.1 (80.0-100.0) fL MCH 31.7 (25.0-35.0) pg MCHC 34.8 (31.0-37.0) g/dL RDW 12.4 (11.5-15.5) % Plt Count 268 (150-450) k/uL Neutrophils % 66 % Lymphocytes % 25 % Monocytes % 6 % Eosinophils % 1 % Basophils % 1 % Neutrophils # 4.8 (1.3-7.7) k/uL Lymphocytes # 1.8 (1.0-4.8) k/uL Monocytes # 0.4 (0-1.0) k/uL Eosinophils # 0.0 (0-0.7) k/uL Basophils # 0.0 (0-0.2) k/uL PT 10.9 (9.0-12.0) sec INR 1.1 (<1.1) APTT 23.4 (22.0-30.0) sec Sodium 143 (137-145) mmol/L Potassium 4.7 (3.5-5.1) mmol/L Chloride 100 (98-107) mmol/L Carbon Dioxide 30 (22-30) mmol/L Anion Gap 13 mmol/L BUN 14 (9-20) mg/dL Creatinine 1.00 (0.66-1.25) mg/dL Est GFR (MDRD) Af Amer >60 (>60 ml/min/1.73 sqM) Est GFR (MDRD) Non-Af >60 (>60 ml/min/1.73 sqM) Glucose 88 (74-99) mg/dL Calcium 10.3 H (8.4-10.2) mg/dL Total Bilirubin 0.7 (0.2-1.3) mg/dL AST 25 (17-59) U/L ALT 43 (21-72) U/L Alkaline Phosphatase 69 (38-126) U/L Total Protein 8.1 (6.3-8.2) g/dL Albumin 4.6 (3.5-5.0) g/dL Amylase 52 (30-110) U/L Lipase 106 (23-300) U/L - Radiology Data Radiology results: image reviewed (Computed tomography scan shows no acute process.) Disposition Clinical Impression: Intractable vomiting Disposition: ADMITTED IP TO THIS HOSP
[2016-07-10 22:23] LABS: Basophils % (A) 1 %; CH 31.6; CHCM 34.8; Eosinophils % (A) 1 %; HCT 46.1 % (39.0-53.0); Luc # (Auto) 0.14; Luc % (Auto) 2; Lymphocytes # (A) 1.8 k/uL (1.0-4.8); Lymphocytes % (A) 25 %; MCH 31.7 pg (25.0-35.0); MCHC 34.8 g/dL (31.0-37.0); MCV 91.1 fL (80.0-100.0); Mean Platelet Volume 6.9; Monocytes # (A) 0.4 k/uL (0-1.0); Monocytes % (A) 6 %; Neutrophils # (A) 4.8 k/uL (1.3-7.7); Neutrophils % (A) 66 %; RBC 5.06 m/uL (4.30-5.90); RDW 12.4 % (11.5-15.5); WBC 7.2 k/uL (3.8-10.6); WBC (Perox) 7.61
[2016-07-10 22:33] LABS: ALT 43 U/L (21-72); AST 25 U/L (17-59); Alkaline Phosphatase 69 U/L (38-126); Amylase 52 U/L (30-110); Anion Gap 13 mmol/L; Blood Urea Nitrogen 14 mg/dL (9-20); Calcium 10.3 mg/dL (8.4-10.2); Carbon Dioxide 30 mmol/L (22-30); Chloride 100 mmol/L (98-107); Glucose 88 mg/dL (74-99); Non-African American GFR(MDRD) >60 (>60 ml/min/1.73 sqM); Potassium 4.7 mmol/L (3.5-5.1); Sodium 143 mmol/L (137-145); Total Bilirubin 0.7 mg/dL (0.2-1.3); Total Protein 8.1 g/dL (6.3-8.2)
[2016-07-10 22:36] LABS: INR 1.1 (<1.1); Partial Thromboplastin Time 23.4 sec (22.0-30.0); Prothrombin Time 10.9 sec (9.0-12.0)
--- NOTE | 2016-07-10 23:06 | CT ---
EXAM: CT Abdomen and Pelvis With Intravenous Contrast. CLINICAL HISTORY: Reason: abdominal pain TECHNIQUE: Axial computed tomography images of the abdomen and pelvis with intravenous contrast. CTDI is 16.7, 16.7 mGy and DLP is 902.8, 653.1 mGy- cm This CT exam was performed using one or more of the following dose reduction techniques: automated exposure control, adjustment of the mA and/or kV according to patient size, and/or use of iterative reconstruction technique. COMPARISON: None. FINDINGS: Lower thorax: No acute findings. ABDOMEN: Liver: Unremarkable. Gallbladder and bile ducts: Unremarkable. Pancreas: Unremarkable. Spleen: Unremarkable. Adrenals: Unremarkable. Kidneys and ureters: Subcentimeter low-density lesion within the right kidney, which is too small to characterize, but likely simple cysts. Probable parapelvic cyst noted within the inferior pole left kidney. Stomach and bowel: Noninflamed colonic diverticulosis. Appendix: The appendix is unremarkable. PELVIS: Bladder: Unremarkable. Reproductive: Unremarkable as visualized. ABDOMEN and PELVIS: Intraperitoneal space: Unremarkable. Bones/joints: Degenerative changes of the spine. No acute fracture. No dislocation. Soft tissues: Unremarkable. Vasculature: Mild calcific atherosclerotic disease of the vasculature. Lymph nodes: Unremarkable. IMPRESSION: No acute findings.
[2016-07-10] MEDS ORDERED: ONDANSETRON 4 MG/2 ML VIAL IVP PRN (23:51)
[2016-07-10] MEDS ORDERED: MORPHINE SULFATE 4 MG/ML SYRINGE IV PRN (23:51)
[2016-07-10] MEDS ORDERED: NALOXONE 0.4 MG/ML 1 ML VIAL IV PRN (23:51)
[2016-07-11 00:05] LABS: Appearance,Urine Clear (Clear); Bilirubin,Urine Negative (Negative); Glucose,Urine (UA) Negative (Negative); Ketones,Urine 1+ (Negative); Leukocyte Esterase,Urine Negative (Negative); Nitrite,Urine Negative (Negative); PH, Urine 6.5 (5.0-8.0); Protein,Urine Trace (Negative); UA Billing (MACRO vs. MICRO) CHEM; Urobilinogen,Urine <2.0 mg/dL (<2.0)
[2016-07-11 00:12] LABS: Specific Gravity,Urine >1.050 (1.001-1.035)
[2016-07-11] MEDS: SODIUM CHLORIDE 0.9% 1,000 ML IV SCH ×4 (00:47→16:13)
[2016-07-11] MEDS ORDERED: ONDANSETRON 4 MG/2 ML VIAL IVP PRN (02:03)
[2016-07-11 09:17] VITALS: BMI 27.1
[2016-07-11] MEDS ORDERED: traMADol 50 MG TAB PO PRN (09:36)
[2016-07-11] MEDS ORDERED: MORPHINE SULFATE 2 MG/ML SYRINGE IV PRN (11:33)
[2016-07-11] MEDS ORDERED: ACETAMINOPHEN TAB 325 MG TAB PO PRN (11:34)
--- NOTE | 2016-07-11 11:38 | P.HPIM ---
History of Present Illness H&P Date: 07/11/16 Chief Complaint: Nausea and vomiting This is a 56-year-old gentleman who presented to the emergency room with worsening nausea and vomiting. Patient was recently discharged from the hospital after being treated for an acute influenza B infection. Since his discharge, patient said that his been having what he describes as abdominal bloating. His having worsening nausea and vomited multiple occasions. He said that his vomitus was mostly as what he described as phlegm. There was occasional bright red blood in it. He said that his abdominal bloating is mostly epigastric. He is having regular bowel movement. He was evaluated in the emergency room and computed tomography scan of the abdomen showed no acute findings. Patient was placed in observation for further evaluation. He said that his symptoms are slightly better today. He was able to tolerate liquid breakfast this morning. On exam his abdomen is soft with very mild tenderness to palpation in the epigastric area. He denies any alcohol use. no NSAIDs use either. He had an EGD last he out of town that was reported normal to him. Review of Systems Review of system: 14 points review of systems were obtained and were negative except to what were mentioned in the HPI. Past Medical History Past Medical History: Myocardial Infarction ([place]) Additional Past Medical History / Comment(s): COMPLEX REGIONAL PAIN SYNDROME- CRPS, RIGHT KNEE PROBLEMS, "i had a heart attackk 20 years ago" Last Myocardial Infarction Date:: unk History of Any Multi-Drug Resistant Organisms: None Reported Past Surgical History: Orthopedic Surgery Additional Past Surgical History / Comment(s): total of 23 RIGHT KNEE sx ( brigements, meniscus repairs), RIGHT HAND, RIGHT ARM-TENDON repair r/t crps, sinus surgury. Past Anesthesia/Blood Transfusion Reactions: No Reported Reaction Past Psychological History: No Psychological Hx Reported Smoking Status: Current every day smoker Past Alcohol Use History: None Reported Additional Past Alcohol Use History / Comment(s): started smoking at age 12, smokes 1/2 ppd. Past Drug Use History: None Reported - Past Family History Mother Family Medical History: Hypertension Father Family Medical History: Cancer Additional Family Medical History / Comment(s): colon cancer Medications and Allergies Home Medications Medication Instructions Recorded Confirmed Type Super Beta Prostate 2 cap PO DAILY 07/04/16 07/11/16 History traMADol HCL [Ultram] 50 mg PO Q6HR PRN 07/04/16 07/11/16 History Loratadine-Pseudoeph 5-120 mg 1 tab PO Q12HR 07/11/16 07/11/16 History [Claritin-D 12 Hour] Allergies Allergy/AdvReac Type Severity Reaction Status Date / Time aspirin Allergy Anaphylaxis Verified 07/11/16 08:19 bee pollen Allergy Anaphylaxis Verified 07/11/16 08:19 Penicillins Allergy Anaphylaxis Verified 07/11/16 08:19 Physical Exam Vitals: Vital Signs Temp Pulse Pulse Resp BP BP Pulse Ox 07/11/16 07:55 97.8 F 62 18 99/61 94 L 07/11/16 04:00 96.9 F L 70 18 109/67 97 07/11/16 03:44 18 07/11/16 01:18 18 07/11/16 00:27 98.2 F 70 18 119/69 97 07/11/16 00:20 98.3 F 77 18 133/71 97 07/11/16 00:05 98 F 84 18 138/72 98 Intake and Output 07/10/16 07/11/16 07/11/16 22:59 06:59 14:59 Intake Total 1100 225 Balance 1100 225 Intake: IV 1000 Sodium Chloride 0.9% 1, 1000 000 ml @ 125 mls/hr IV . Q8H [facility] Rx#:[id number] Oral 100 225 Other: Voiding Method Toilet Weight 90.718 kg Patient Weight 07/12/16 06:59 Weight 90.718 kg General: The patient is awake and alert, in no distress, and does not appear acutely ill. Eye: extra-ocular movements are intact; there is normal conjunctiva bilaterally. . Neck: The neck is supple, there is no tenderness or JVD. Cardiovascular: Normal S1-S2, no S3-S4, no murmurs. Respiratory: Lungs clear to auscultation bilaterally with no wheezes rhonchi or rales. Gastrointestinal: Abdomen is soft, nontender, nondistended, with no organomegaly. . Musculoskeletal: Normal ROM, no tenderness, There is no pedal edema. Neurological: There are no obvious motor or sensory deficits. Speech is normal. Skin: Skin is warm and dry and no rashes or lesions are noted. Results CBC & Chem 7: 07/10/16 22:02 07/10/16 22:02 Labs: Abnormal Lab Results - Last 24 Hours (Table) 07/10/16 Range/Units 23:54 Ur Specific Delta >1.050 H (1.001-1.035) Urine Protein Trace H (Negative) Urine Ketones 1+ H (Negative) Thrombosis Risk Factor Assmnt - Choose All That Apply Each Factor Represents 1 point: Age 41-60 years, Obesity (BMI >25) Other congenital or acquired thrombophilia - If yes, enter type in comment: No Thrombosis Risk Factor Assessment Total Risk Factor Score: 2 Thrombosis Risk Factor Assessment Level: Low Risk Assessment and Plan Plan: 1. Acute viral gastritis 2. Generalized anxiety disorder 3. Chronic arthritis pain 4. Recent influenza and the infection finished Tamiflu course We'll continue supportive care and IV fluids. Anti-emetic as needed. Advance diet as tolerated. Encouraged ambulation. Depending on clinical course patient would be probably discharge home tomorrow.
[2016-07-11] MEDS: PANTOPRAZOLE 40 MG/10 ML VIAL IV SCH (12:01)
[2016-07-11] MEDS: traMADol 50 MG TAB PO PRN ×2 (17:42→23:03)
[2016-07-11 20:39] VITALS: RESP 16
[2016-07-11] MEDS: LORATADINE-PSEUDOEPH 5-120 MG 1 EACH TAB.ER.12H PO SCH (21:05)
[2016-07-12 04:38] VITALS: TEMP 97.9
[2016-07-12 07:55] VITALS: BP 110/62; PULSE 59
[2016-07-12] MEDS: PANTOPRAZOLE 40 MG/10 ML VIAL IV SCH (08:16)
[2016-07-12] MEDS: LORATADINE-PSEUDOEPH 5-120 MG 1 EACH TAB.ER.12H PO SCH (08:16)
[2016-07-12] MEDS: traMADol 50 MG TAB PO PRN (08:16)
[2016-07-12] MEDS ORDERED: SUPER BETA PROSTATE PO SCH (09:00)
--- NOTE | 2016-07-12 14:20 | P.DS ---
Providers Date of admission: 07/10/16 23:52 Expected date of discharge: 07/12/16 Attending physician: Jessy Juarez Primary care physician: Mitchell [place] Hospital Course: This is a 56-year-old gentleman who presented to the hospital initially with worsening epigastric discomfort, nausea, vomiting. He was evaluated in the emergency room and computed tomography scan of the abdomen showed no acute findings. Most of his lab work was within acceptable range. Patient was placed on observation and was treated for acute viral gastritis with supportive care, IV fluids, antiemetic, and pain medications. His overall condition improved significantly within the first 24 hours. On the day of discharge, patient was able to tolerate regular diet with no difficulty. He will be discharged home in a stable condition. He will follow-up with me in the office as directed. Below is a list of his medical problems addressed during this hospitalization. 1. Acute viral gastritis 2. Generalized anxiety disorder 3. Chronic arthritis pain 4. Recent influenza and the infection finished Tamiflu course Plan - Discharge Summary Discharge Medication List Super Beta Prostate 2 cap PO DAILY 07/04/16 [History] traMADol HCL [Ultram] 50 mg PO Q6HR PRN 07/04/16 [History] Loratadine-Pseudoeph 5-120 mg [Claritin-D 12 Hour] 1 tab PO Q12HR 07/11/16 [ History] Follow up Appointment(s)/Referral(s): Mitchell Adair MD [Primary Care Provider] - 07/18/16 3:30 pm
== END 2016-07-12 14:48 | disposition home or self-care (01) ==
LOC: EC 20:39 → 3OBS 23:52
PROVIDERS: ADMIT Internal Medicine; ATTEND Internal Medicine
DX: A08.4 Viral intestinal infection, unspecified (principal); K29.00 Acute gastritis without bleeding; F41.1 Generalized anxiety disorder; I25.2 Old myocardial infarction; F17.200 Nicotine dependence, unspecified, uncomplicated; Z82.49 Family history of ischemic heart disease and other diseases of the circulatory system; Z88.0 Allergy status to penicillin; Z88.6 Allergy status to analgesic agent; Z91.030 Bee allergy status; M19.90 Unspecified osteoarthritis, unspecified site; G89.29 Other chronic pain
CPT/HCPCS: 96372 ×2; 96374 ×2; 96375 ×2; 96361 ×2; 99285 ×2; 36415; 80053; 82150; 83690; 85025; 85610; 85730; 81003; 74177; G0378 ×3; J2270 ×2; J0500; J2405; Q9967; C9113; 96376

== ENCOUNTER 2016-09-28 01:50 | Emergency (ER) | payer MEDICARE, OTHER ==
[2016-09-28 02:02] VITALS: BP 156/81; RESP 22; TEMP 99
[2016-09-28] MEDS ORDERED: IPRATROPIUM-ALBUTEROL 3 ML NEB INHALATION STA (02:03)
--- NOTE | 2016-09-28 02:06 | ED ---
SOB HPI - General Chief Complaint: Shortness of Breath Stated Complaint: SOB Time Seen by Provider: 09/28/16 01:57 Source: patient, RN notes reviewed Mode of arrival: ambulatory Limitations: no limitations - History of Present Illness Initial Comments: This is a 56-year-old male with a history of complex regional pain syndrome to the right arm who states he was a smoker but quit recently who states he woke up 2 hours ago shortness breath. He states he can breathe through his nose mildly can't get a good breath. He presents hospital by private vehicle he is very anxious he denies any fevers chills nausea vomiting sweats earaches sore throat rhinorrhea. MD Complaint: shortness of breath - Related Data Home Medications Medication Instructions Recorded Confirmed Super Beta Prostate 2 cap PO DAILY 07/04/16 07/11/16 traMADol HCL [Ultram] 50 mg PO Q6HR PRN 07/04/16 07/11/16 Loratadine-Pseudoeph 5-120 mg 1 tab PO Q12HR 07/11/16 07/11/16 [Claritin-D 12 Hour] Previous Rx's Medication Instructions Recorded Albuterol Inhaler [Ventolin Hfa 2 puff INHALATION Q6HR PRN #1 09/28/16 Inhaler] inhaler Azithromycin [Zithromax Z-pack] 250 mg PO DIRECTED #6 tab 09/28/16 predniSONE 20 mg PO BID #10 tab 09/28/16 Allergies Allergy/AdvReac Type Severity Reaction Status Date / Time aspirin Allergy Anaphylaxis Verified 07/11/16 08:19 bee pollen Allergy Anaphylaxis Verified 07/11/16 08:19 Penicillins Allergy Anaphylaxis Verified 07/11/16 08:19 Review of Systems ROS Statement: Those systems with pertinent positive or pertinent negative responses have been documented in the HPI. ROS Other: All systems not noted in ROS Statement are negative. Past Medical History Past Medical History: Myocardial Infarction (ME) Additional Past Medical History / Comment(s): COMPLEX REGIONAL PAIN SYNDROME- CRPS, RIGHT KNEE PROBLEMS, "i had a heart attackk 20 years ago" Last Myocardial Infarction Date:: unk History of Any Multi-Drug Resistant Organisms: None Reported Past Surgical History: Orthopedic Surgery Additional Past Surgical History / Comment(s): total of 23 RIGHT KNEE sx ( brigements, meniscus repairs), RIGHT HAND, RIGHT ARM-TENDON repair r/t crps, sinus surgury. Past Anesthesia/Blood Transfusion Reactions: No Reported Reaction Past Psychological History: No Psychological Hx Reported Smoking Status: Former smoker Past Alcohol Use History: None Reported Past Drug Use History: None Reported - Past Family History Mother Family Medical History: Hypertension Father Family Medical History: Cancer Additional Family Medical History / Comment(s): colon cancer General Exam - General Exam Comments Initial Comments: This will help well-nourished awake alert oriented 3 male Limitations: no limitations General appearance: alert, anxious Head exam: Present: atraumatic, normocephalic, normal inspection Eye exam: Present: normal appearance, PERRL, EOMI. Absent: scleral icterus, conjunctival injection, periorbital swelling ENT exam: Present: normal exam, mucous membranes moist Neck exam: Present: normal inspection. Absent: tenderness, meningismus, lymphadenopathy Respiratory exam: Present: decreased breath sounds. Absent: respiratory distress, wheezes, rales, rhonchi, stridor Cardiovascular Exam: Present: regular rate, normal rhythm, normal heart sounds. Absent: systolic murmur, diastolic murmur, rubs, gallop, clicks GI/Abdominal exam: Present: soft, normal bowel sounds. Absent: distended, tenderness, guarding, rebound, rigid Extremities exam: Present: normal inspection, full ROM, normal capillary refill. Absent: tenderness, pedal edema, joint swelling, calf tenderness Back exam: Present: normal inspection Neurological exam: Present: alert, oriented X3, CN II-XII intact Psychiatric exam: Present: normal affect, normal mood Skin exam: Present: warm, dry, intact, normal color. Absent: rash Course Vital Signs 09/28/16 09/28/16 09/28/16 01:55 02:04 02:08 Temperature 99.0 F Pulse Rate 80 80 88 Respiratory 22 Rate Blood Pressure 156/81 O2 Sat by Pulse 100 Oximetry - Reevaluation(s) Reevaluation #1: 09/28/16 03:21 Reevaluation patient reveals increased aeration no rhonchi or rales. Medical Decision Making - Medical Decision Making Patient still anxious Require more medication he was later in satisfactory condition for discharge she 'll be placed on a short course of prednisone will be given a prescription for an inhaler and short course of antibiotics. - EKG Data -: EKG Interpreted by Me EKG shows normal: sinus rhythm (Sinus rhythm rate of 86 DE interval 142 QRS duration 90 daily since QTC of 360/440 this appears unchanged from a previous EKG dated 07/04/16) - Radiology Data Radiology results: report reviewed (I did review the imaging and reports no acute findings.), image reviewed Disposition Clinical Impression: Acute asthmatic bronchitis, Acute febrile illness Disposition: HOME SELF-CARE Condition: Good Instructions: Bronchospasm (ED), Asthma (ED), Acute Bronchitis (ED) Prescriptions: Albuterol Inhaler [Ventolin Hfa Inhaler] 2 puff INHALATION Q6HR PRN #1 inhaler PRN Reason: Dyspnea Azithromycin [Zithromax Z-pack] 250 mg PO DIRECTED #6 tab predniSONE 20 mg PO BID #10 tab Referrals: Mitchell Adair MD [Primary Care Provider] - 1-2 days
[2016-09-28] MEDS ORDERED: LORazepam 1 MG TAB PO STA ×2 (02:07→03:20)
[2016-09-28 02:10] VITALS: PULSE 88
[2016-09-28] MEDS ORDERED: predniSONE 50 MG TAB PO STA (03:20)
--- NOTE | 2016-09-28 03:42 | XR ---
EXAM: XR Chest, 2 Views CLINICAL HISTORY: Reason: cough TECHNIQUE: Frontal and lateral views of the chest. COMPARISON: Chest radiography 07/04/16 FINDINGS: Lungs: Unremarkable. No consolidation. Pleural space: Unremarkable. No pneumothorax. Heart: Unremarkable. No cardiomegaly. Mediastinum: Unremarkable. Bones/joints: Unremarkable. IMPRESSION: Normal chest x-rays.
== END 2016-09-28 03:33 | disposition home or self-care (01) ==
LOC: EC 01:50
DX: J45.901 Unspecified asthma with (acute) exacerbation (principal); Z87.891 Personal history of nicotine dependence; Z79.899 Other long term (current) drug therapy; Z91.030 Bee allergy status; Z88.6 Allergy status to analgesic agent; Z88.0 Allergy status to penicillin
CPT/HCPCS: 94640; 93005; 71020; 99285; J7512